=== PATIENT | male | born 1990 | race Caucasian/White ===

== ENCOUNTER 2016-09-24 10:21 | Emergency (ER) | payer OTHER ==
[~2016-09-24] VITALS: Ht 172.7 cm; Wt 56.5 kg
[~2016-09-24 10:21] MED LIST: FIORICET 50-301 EACH PO; MOTRIN800 MG PO; NOHOMEMEDS; SKELAXIN800 MG PO; VYVANSE40 MG PO
[2016-09-24 13:31] LABS: HEMATOCRIT 43.2 % (38.0-50.0); MCH 30.2 PG (29.0-34.0); MCV 86.4 FL (86-99); MEAN PLAT.VOLUME 10.3 uM^3 (9.0-12.4); PLATELET COUNT 218 K/uL (156-360); RBC DIS.WIDTH-CV 12.4 % (11.8-14.6); RBC DIS.WIDTH-SD 38.6 % (39-53); WHITE BLOOD COUNT 7.2 K/uL (4.1-10.2)
[2016-09-24 13:42] LABS: CHLORIDE 107 mEq/L (99-109); POTASSIUM 4.2 mEq/L (3.7-5.4); SODIUM 141 mEq/L (136-147)
[2016-09-24 13:44] LABS: GLUCOSE 100 mg/dL (70-99)
[2016-09-24 13:46] LABS: ANION GAP 6 MEQ/L (2-14); TOTAL BILIRUBIN 0.6 mg/dL (0.0-1.0)
[2016-09-24 13:48] LABS: ALKALINE PHOSPHATASE 68 IU/L (3-129); GFR ESTIMATE (CALCULATED) > 59 mL/min/
[2016-09-24 13:49] LABS: UREA NITROGEN (BUN) 12 mg/dL (9-23)
[2016-09-24 13:51] LABS: LIPASE 15 U/L (1.0-51.0)
[2016-09-24 13:52] LABS: ADD MIUA? NO; BILIRUBIN NEGATIVE; BLOOD NEGATIVE; COLOR YELLOW ((YELLOW)); GLUCOSE (STRIP) NEGATIVE; KETONES NEGATIVE; LEUKOCYTES NEGATIVE; NITRITE NEGATIVE; PROTEIN (STRIP) NEGATIVE; SPECIFIC GRAVITY 1.016 (1.000-1.030); UROBILINOGEN 0.2 MG/DL (0.2-1.0)
[2016-09-24] MEDS ORDERED: ZOFRAN ODT4 MG PO (14:05)
[2016-09-24 14:18] VITALS: BP 126/76
== END 2016-09-24 14:20 | disposition home or self-care (01) ==
LOC: RME 10:21 → EME 10:21 → RME 14:20
PROVIDERS: Nurse Practitioner Family
DX: J06.9 Acute upper respiratory infection, unspecified (principal); K92.2 Gastrointestinal hemorrhage, unspecified
CPT/HCPCS: 80053; 81003; 83690; 85027; 99281; 99284